=== PATIENT | male | born 1990 | race African-American/Black ===

== ENCOUNTER 2017-01-15 15:50 | Emergency (ER) | payer OTHER ==
[2017-01-15 18:07] LABS: Hematocrit 39 % (42-52); Hemoglobin 12.9 g/dl (14.0-18.0); Mean Corpuscular HGB Conc 33 g/dl (31-36); Mean Corpuscular Hemoglobin 28 pg (27-31); Mean Corpuscular Volume 85 fL (80-94); Mean Platelet Volume 8 um3 (7.4-10.4); Red Blood Count 4.57 10^6/ul (4.0-5.4); Red Cell Distribution Width 15 % (10.5-15); White Blood Count 9.5 10^3/ul (3.5-10.8)
[2017-01-15 18:22] LABS: BUN/Creatinine Ratio 10.9 (8-20); EGFR African American 94.3 (>60); EGFR Non-African American 73.3 (>60); Globulin 3.4 g/dL (2-4); Potassium 3.7 mmol/L (3.5-5.0); Total Bilirubin 0.4 mg/dL (0.2-1.0); Total Protein 7.4 g/dL (6.4-8.9)
[2017-01-15] MEDS ORDERED: Cephalexin CAP* 500 MG PO ONE ×2 (18:33→21:31)
[2017-01-15] MEDS ORDERED: HYDROcodone/ACETAMIN 5-325 MG* 1 TAB PO ONE (18:33)
[2017-01-15] MEDS ORDERED: Sulfamethox/Trimethoprim DS 800/160* TAB PO ONE ×2 (18:33→21:31)
[2017-01-15] MEDS ORDERED: Naproxen TAB* 250 MG PO ONE (21:31)
[2017-01-15 22:02] VITALS: BP 137/57
--- NOTE | 2017-01-19 10:22 | ED ---
Anel Dyer Thomas, scribed for Allen Don MD on 01/15/17 at 1827 . Throat Pain/Nasal Congestion - HPI Summary HPI Summary: The pt is a 26 y/o M from [facility] and accompanied by police presenting to the ED c/o neck swelling and dysphagia that began today. He rates his pain 8/10 in the ED. Pt was seen at the [facility]. Pt additionally c/o pruritic rashes to his R hand, fevers, sweats, chills, and fatigue. Pt denies CP, SOB. PMHx: asthma, seasonal allergies - History of Current Complaint Chief Complaint: EDGeneral Time Seen by Provider: 01/15/17 17:30 Hx Obtained From: Patient Onset/Duration: Lasting Hours - onset today, Still Present Associated Signs And Symptoms: Positive: Dysphagia - Allergies/Home Medications Allergies/Adverse Reactions: Allergies Allergy/AdvReac Type Severity Reaction Status Date / Time No Known Allergies Allergy Verified 01/15/17 17:41 Home Medications: Home Medications Albuterol HFA INHALER* [Ventolin HFA Inhaler*] 2 puff INH Q6H PRN 01/15/17 [ History Confirmed 01/15/17] Ibuprofen TAB* [Motrin TAB* 800 MG] 800 mg PO Q8HR PRN 01/15/17 [History Confirmed 01/15/17] LoraTADine TAB(NF) [Claritin 10 MG TAB(NF)] 10 mg PO DAILY 01/15/17 [History Confirmed 01/15/17] PMH/Surg Hx/FS Hx/Imm Hx Previously Healthy: No Respiratory History: Reports: Hx Asthma, Hx Seasonal Allergies Denies: Hx Chronic Obstructive Pulmonary Disease (COPD) Sensory History: Denies: Hx Legally Blind - Immunization History Date of Tetanus Vaccine: unknown Date of Influenza Vaccine: no Infectious Disease History: No Infectious Disease History: Denies: Traveled Outside the [place] in Last 30 Days - Family History Known Family History: Positive: Diabetes Negative: Cardiac Disease - Social History Alcohol Use: None Substance Use Type: Reports: None Smoking Status (MU): Never Smoked Tobacco Review of Systems Positive: Fever - afebrile in the ED, pt reports a fever earlier today, Chills, Fatigue, Skin Diaphoresis Eyes: Negative Negative: Erythema - eyes Positive: Other - POS: neck swelling, dysphagia. Negative: Sore Throat Cardiovascular: Negative Negative: Chest Pain Respiratory: Negative Negative: Shortness Of Breath Gastrointestinal: Negative Negative: Abdominal Pain, Vomiting, Nausea Genitourinary: Negative Negative: dysuria, hematuria Musculoskeletal: Negative Negative: Myalgia, Edema - leg Positive: Rash - pruritic, to R hand Neurological: Negative, Other - NEG: dizziness Psychological: Normal All Other Systems Reviewed And Are Negative: Yes Physical Exam - Summary Physical Exam Summary: Constitutional: Well-developed, Well-nourished, Alert. (-) Distressed Skin: Warm, Dry. Induration with no fluctuance at the submental area. HENT: No trismus. No Maik's angina. Erythema under tongue. Normocephalic, Atraumatic Eyes: Conjunctiva normal Neck: Mild cervical adenopathy. Musculoskeletal ROM normal neck. (-) JVD, (-) Stridor, (-) Tracheal deviation Cardio: Rhythm regular, rate normal, Heart sounds normal; Intact distal pulses; The pedal pulses are 2+ and symmetric. Radial pulses are 2+ and symmetric. (-) Murmur Pulmonary/Chest wall: Effort normal. (-) Respiratory distress, (-) Wheezes, (-) Rales Abd: Soft, (-) Tenderness, (-) Distension, (-) Guarding, (-) Rebound Musculoskeletal: (-) Edema Lymph: (-) Cervical adenopathy Neuro: Alert, Oriented x3 Psych: Mood and affect Normal Triage Information Reviewed: Yes Vital Signs On Initial Exam: Initial Vitals Temp Pulse Resp BP Pulse Ox 99.6 F 62 20 169/64 98 01/15/17 16:11 01/15/17 16:11 01/15/17 16:11 01/15/17 16:11 01/15/17 16:11 Vital Signs Reviewed: Yes - [place] Coma Scale Coma Scale Total: 15 Procedures - Incision and Drainage Site: Explored with curved hemostat. No significant cavity. Only bloody drainage. Anesthesia: Lidocaine - 3 mL of 1% Instrument(s): Scalpel - 11 blade Diagnostics - Vital Signs Vital Signs Temp Pulse Resp BP Pulse Ox 01/15/17 17:41 98 01/15/17 17:23 99.6 F 62 20 169/64 98 01/15/17 16:11 99.6 F 62 20 169/64 98 - Laboratory Lab Results: Lab Results 01/15/17 01/15/17 Range/Units 17:50 17:50 WBC 9.5 (3.5-10.8) 10^3/ul RBC 4.57 (4.0-5.4) 10^6/ul Hgb 12.9 L (14.0-18.0) g/dl Hct 39 L (42-52) % MCV 85 (80-94) fL MCH 28 (27-31) pg MCHC 33 (31-36) g/dl RDW 15 (10.5-15) % Plt Count 198 (150-450) 10^3/ul MPV 8 (7.4-10.4) um3 Neut % (Auto) 48.4 (38-83) % Lymph % (Auto) 36.2 (25-47) % Mckenzie % (Auto) 10.5 H (1-9) % Eos % (Auto) 4.0 (0-6) % Baso % (Auto) 0.9 (0-2) % Absolute Neuts (auto) 4.6 (1.5-7.7) 10^3/ul Absolute Lymphs (auto) 3.4 (1.0-4.8) 10^3/ul Absolute Monos (auto) 1.0 H (0-0.8) 10^3/ul Absolute Eos (auto) 0.4 (0-0.6) 10^3/ul Absolute Basos (auto) 0.1 (0-0.2) 10^3/ul Absolute Nucleated RBC 0.02 10^3/ul Nucleated RBC % 0.2 Lactic Acid 0.6 (0.5-2.0) mmol/L Result Diagrams: 01/15/17 17:50 01/15/17 17:50 Lab Statement: Any lab studies that have been ordered have been reviewed, and results considered in the medical decision making process. Re-Evaluation - Re-Evaluation First Eval Re-Evaluation Time: 21:33 Change: Unchanged EENT Course/Dx - Course Course Of Treatment: An incision and drainage was performed that revealed only bloody drainage and no significant cavity. In the ED course he was given Cephalexin, hydrocodone, naproxen, and Bactrim. Assessment/Plan: The pt is a 26 y/o M from [facility] and accompanied by police presenting to the ED c/o neck swelling and dysphagia that began today. He rates his pain 8/10 in the ED. Pt was seen at the [facility]. Pt additionally c/o pruritic rashes to his R hand, fevers, sweats , chills, and fatigue. Pt denies CP, SOB. PMHx: asthma, seasonal allergies. An incision and drainage was performed that revealed only bloody drainage and no significant cavity. Bloodwork revealed Hgb 12.9, Hct 39, Mckenzie% 10.5, Absolute monos 1.0, APTT 38.9, Creatinine 1.19. In the ED course he was given Cephalexin , hydrocodone, naproxen, and Bactrim. An incision and drainage was performed. The pt was diagnosed home with chin cellulitis and instructed to follow up with [facility] in 48 hours. Pt is agreeable with this plan. Pt was instructed to return if there is worsening swelling or fever. - Diagnoses Provider Diagnoses: Cellulitis of chin Discharge - Discharge Plan Condition: Stable Disposition: HOME Prescriptions: Cephalexin CAP* [Keflex CAP*] 500 mg PO QID #40 cap Sulfamethox/Trimethoprim DS* [Bactrim DS 800/160 TAB*] 1 tab PO BID #20 tab Patient Education Materials: Cellulitis (ED) Additional Instructions: RETURN TO THE EMERGENCY DEPARTMENT FOR CHANGING OR WORSENING SYMPTOMS. RETURN IF THERE IS WORSENING SWELLING OR FEVER Follow up with the [facility] in 48 hours. The documentation as recorded by the Anel melgar Thomas accurately reflects the service I personally performed and the decisions made by , Allen Don MD.
== END 2017-01-15 22:00 | disposition home or self-care (01) ==
LOC: ED 15:50
DX: L03.211 Cellulitis of face (principal); R50.9 Fever, unspecified; L29.9 Pruritus, unspecified; R21 Rash and other nonspecific skin eruption
CPT/HCPCS: 36415; 80053; 83605; 85025; 85610; 85730; 87040; 87070; 87205; 99283; A9270-GY